=== PATIENT | female | born 1965 | race Caucasian/White ===

== ENCOUNTER 2016-11-18 12:05 | Inpatient (IN) | payer OTHER ==
[~2016-11-18] VITALS: Ht 147.3 cm; Wt 59.9 kg
--- NOTE | ~2016-11-18 | EKG ---
[address] [place] [address] ELECTROCARDIOGRAM REPORT Name: RADHA KRAMER Room #: 427-P ADM IN M.R.#: [id number] Admission: 11/18/16 Attend Phys: Judah Parisi MD Discharge: Date of : 61 Report #: [id number] THIS REPORT FOR: //name// [facility] ED Test Date: 2016-11-18 Test Time: 13:43:57 Pat Name: RADHA KRAMER Department: Room: [facility] Gender: F Senior Relationship Manager: [id number] : 1965 Requested By: Dalia Woodruff Order Number: [id number] MD: Emilio Estevez Measurements Intervals [place] Rate: 91 P: 65 RI: 147 QRS: 50 QRSD: 91 T: 25 QT: 370 QTc: 456 Interpretive Statements Sinus rhythm Low voltage, precordial leads RSR' in V1 or V2, right VCD Nonspecific ST and T wave abnormality Compared to ECG 01/08/2013 18:36:[address] and T wave abnormality is now present Electronically Signed On 11-19-2016 13:48:26 CDT by Emilio Estevez [email or web address] <ELECTRONICALLY SIGNED> By: Emilio Estevez MD, [facility] 11/19/16 1348 1343 1343 Emilio Estevez MD, [facility] /EPI
[~2016-11-18 12:05] MED LIST: ALPRAZOLAM PO; CELEXA 20 MG TA20 M1 PO; CELEXA40 MG PO; ENDOCET 10-3251 EACH PO; GLUCOPHAGE500 MG PO; HYDROCODON-ACE1 EAC7 PO; INDERAL 20 MG T20 M1 PO; LEVAQUIN 750 M750 MG PO; LEVOTHYROXIN0.025 MG PO; LEVOTHYROXINE0.05 MG PO; LISINOPRIL20 MG PO; MECLIZINE HCL12.5 MG PO; MELATONIN3 MG PO; NORVASC10 MG PO; OMEPRAZOLE 20 M20 M1 PO; PHENERGAN 25 MG25 M1 PO; PRAVACHOL40 MG PO; RANITIDINE 150150 M1 PO; REGLAN 10 MG TA10 MG PO; RESTORIL; RESTORIL15 MG PO; SYNTHROID25 MCG; TIZANIDINE; TIZANIDINE HCL4 MG PO; XANAX 0.5 MG0.5 M1 PO; ZANAFLEX2 M1 PO
[2016-11-18 12:25] LABS: URINE BILIRUBIN NEGATIVE (Negative); URINE BLOOD 3+ (Negative); URINE COLOR RED; URINE GLUCOSE-RANDOM* NEGATIVE (Negative); URINE KETONES NEGATIVE (Negative); URINE NITRITE POSITIVE (Negative); URINE PROTEIN (DIPSTICK) 3+ (Negative); URINE SPECIFIC GRAVITY 1.025 (1.003-1.035); URINE UROBILINOGEN 0.2 E.U./dl (0.2-1.0)
[2016-11-18 12:26] LABS: CASTS None Seen /LPF (None Seen); CRYSTALS None Seen /LPF (None Seen); SQUAMOUS 0-3 Few /LPF (0-3); URINE RBC >20 Many /HPF (0-2)
[2016-11-18 12:27] LABS: BACTERIA 1-9 Few /HPF (None Seen); URINE WBC 0-5 Rare /HPF (0-5)
[2016-11-18 12:42] LABS: HEMATOCRIT 35.9 % (37.0-47.0); HEMOGLOBIN 11.2 gm/dL (12.0-15.0); MCH 22.5 pg (26.0-34.0); MCHC 31.2 g/dL (28.0-37.0); MCV 72.2 fL (80.0-100.0); PLATELET COUNT 595 thou/uL (150-400); RBC 4.97 mil/uL (4.20-5.00); RDW 19.3 % (10.5-14.5); WBC 21.3 thou/uL (4.0-11.0)
[2016-11-18 12:43] LABS: MANUAL DIFF YES
[2016-11-18 12:57] LABS: CALCIUM 10.5 mg/dL (8.5-10.1); CREATININE 1.1 mg/dL (0.6-1.0); POTASSIUM 5.9 mmol/L (3.5-5.1)
[2016-11-18 12:59] LABS: ABSOLUTE NEUTROPHILS 18.5 thou/uL (1.4-8.2); TOTAL CELL COUNT 100
[2016-11-18 13:00] LABS: ANISOCYTOSIS 2+; HYPOCHROMASIA 1+; MICROCYTES 1+
[2016-11-18 13:01] LABS: POLYCHROMASIA OCCASIONAL
[2016-11-18 13:08] LABS: ALBUMIN 2.1 g/dL (3.4-5.0); ALKALINE PHOSPHATASE 146 U/L (46-116); SGOT 33 U/L (15-37); SGPT 19 U/L (30-65); TOTAL BILIRUBIN 0.1 mg/dL (<0.1-1.0)
[2016-11-18 13:15] LABS: DIRECT BILIRUBIN < 0.1 mg/dL (<0.1-0.3)
[2016-11-18 14:16] VITALS: BP 121/84
[2016-11-18 14:52] VITALS: BP 130/76
[2016-11-18 14:55] VITALS: BP 139/74
[2016-11-18 19:43] VITALS: BP 156/95
[2016-11-19 03:31] VITALS: BP 123/74
[2016-11-19 05:54] LABS: ALBUMIN 1.7 g/dL (3.4-5.0); CALCIUM 8.6 mg/dL (8.5-10.1); CREATININE 1.5 mg/dL (0.6-1.0); TOTAL BILIRUBIN 0.1 mg/dL (<0.1-1.0); TOTAL PROTEIN 6.2 g/dL (6.4-8.2)
[2016-11-19 05:58] LABS: POTASSIUM 4.3 mmol/L (3.5-5.1)
[2016-11-19 08:20] LABS: HEMATOCRIT 30.7 % (37.0-47.0); HEMOGLOBIN 9.6 gm/dL (12.0-15.0); MCH 22.9 pg (26.0-34.0); MCHC 31.3 g/dL (28.0-37.0); MCV 73.3 fL (80.0-100.0); RBC 4.18 mil/uL (4.20-5.00); RDW 19.6 % (10.5-14.5); WBC 17.7 thou/uL (4.0-11.0)
[2016-11-19 08:29] VITALS: BP 110/77
[2016-11-19 15:44] VITALS: BP 123/75
[2016-11-19 20:00] VITALS: BP 122/75
[2016-11-20 04:30] VITALS: BP 121/67
[2016-11-20 05:10] LABS: HEMATOCRIT 29.2 % (37.0-47.0); HEMOGLOBIN 8.9 gm/dL (12.0-15.0); MCH 22.5 pg (26.0-34.0); MCHC 30.5 g/dL (28.0-37.0); MCV 73.7 fL (80.0-100.0); RBC 3.97 mil/uL (4.20-5.00); WBC 11.6 thou/uL (4.0-11.0)
[2016-11-20 05:19] LABS: CREATININE 1.2 mg/dL (0.6-1.0); POTASSIUM 3.4 mmol/L (3.5-5.1)
[2016-11-20] MEDS ORDERED: NORCO 10-325 T1 EACH PO (05:29)
[2016-11-20 08:16] VITALS: BP 111/62
[2016-11-20] MEDS ORDERED: CIPRO500 M1 PO (09:19)
[2016-11-20 15:47] VITALS: BP 140/71
[2016-11-20 20:21] VITALS: BP 137/82
[2016-11-21 04:08] VITALS: BP 108/52
[2016-11-21 08:05] VITALS: BP 95/56
[2016-11-21 09:50] VITALS: BP 130/71
[2016-11-21] MEDS ORDERED: TRAMADOL 50 MG50 MG PO (10:13)
[2016-11-21 10:34] VITALS: BP 130/71
== END 2016-11-21 11:30 | disposition home or self-care (01) | DRG 690 ==
LOC: ER 12:05 → 4E 13:09 → EROBS 13:09 → 4E 14:52
PROVIDERS: Emergency Medicine; Family Medicine
DX: N39.0 Urinary tract infection, site not specified (principal); E87.1 Hypo-osmolality and hyponatremia; E44.0 Moderate protein-calorie malnutrition; I10 Essential (primary) hypertension; E03.9 Hypothyroidism, unspecified; B96.20 Unspecified Escherichia coli [E. coli] as the cause of diseases classified elsewhere; D72.829 Elevated white blood cell count, unspecified; F41.9 Anxiety disorder, unspecified; E87.5 Hyperkalemia; E11.65 Type 2 diabetes mellitus with hyperglycemia; Z79.4 Long term (current) use of insulin; Z88.6 Allergy status to analgesic agent; Z68.27 Body mass index [BMI] 27.0-27.9, adult
CPT/HCPCS: 10783

== ENCOUNTER 2017-01-01 20:04 | Emergency (ER) | payer OTHER ==
[~2017-01-01] VITALS: Ht 147.3 cm; Wt 64.0 kg
--- NOTE | ~2017-01-01 | EKG ---
[address] [address] ELECTROCARDIOGRAM REPORT Name: RADHA KRAMER [facility]: [id number] Admission: 01/01/17 Attend Phys: Discharge: 01/01/17 Date of : 61 Report #: [id number] THIS REPORT FOR: //name// [facility] ED Test Date: 2017-01-01 Test Time: 20:44:07 Pat Name: RADHA KRAMER Department: Room: Gender: F Director Of Institutional Sales: MZOOK : 1965 Requested By: Dalia Woodruff Order Number: [id number] MD: Olivier Weaver Measurements Intervals [place] Rate: 65 P: 47 PA: 152 QRS: 67 QRSD: 80 T: 55 QT: 400 QTc: 416 Interpretive Statements Sinus rhythm RSR' in V1 or V2, probably normal variant Compared to ECG 11/18/2016 13:43:57 ST (T wave) deviation no longer present Electronically Signed On 01-01-2017 22:56:26 CDT by Olivier Weaver [email or web address] <ELECTRONICALLY SIGNED> By: Olivier Weaver MD 01/01/17 [id number] Olivier Weaver MD /EPI
[~2017-01-01 20:04] MED LIST changes: +CIPRO500 M1 PO; +NORCO 10-325 T1 EACH PO; +TRAMADOL 50 MG50 MG PO
[2017-01-01 20:23] LABS: ABSOLUTE NEUTROPHILS 8.6 thou/uL (1.4-8.2); BASOPHILS 0.5 % (0.0-2.0); EOSINOPHILS 5.2 % (0.0-3.0); HEMATOCRIT 27.9 % (37.0-47.0); HEMOGLOBIN 8.7 gm/dL (12.0-15.0); LYMPHOCYTES 27.3 % (24.0-44.0); MCH 22.3 pg (26.0-34.0); MCHC 31.2 g/dL (28.0-37.0); MCV 71.4 fL (80.0-100.0); MONOCYTES 7.1 % (1.0-8.0); PLATELET COUNT 604 thou/uL (150-400); POLYS 59.9 % (36.0-66.0); RBC 3.91 mil/uL (4.20-5.00); RDW 19.1 % (10.5-14.5); WBC 14.4 thou/uL (4.0-11.0)
[2017-01-01 20:24] LABS: MANUAL DIFF NO
[2017-01-01 20:30] LABS: ANION GAP 7 mmol/L (7-16); BUN 18 mg/dL (7-18); CHLORIDE 100 mmol/L (98-107); CO2 25 mmol/L (21-32); CREATININE 1.1 mg/dL (0.6-1.0); GLUCOSE 90 mg/dL (74-106); POTASSIUM 4.5 mmol/L (3.5-5.1); SODIUM 132 mmol/L (136-145)
[2017-01-01 20:35] LABS: ALBUMIN 1.9 g/dL (3.4-5.0); ALKALINE PHOSPHATASE 96 U/L (46-116); SGOT 20 U/L (15-37); SGPT 15 U/L (30-65); TOTAL BILIRUBIN < 0.1 mg/dL (<0.1-1.0); TOTAL PROTEIN 5.9 g/dL (6.4-8.2)
[2017-01-01 20:37] LABS: URINE BILIRUBIN NEGATIVE (Negative); URINE BLOOD 1+ (Negative); URINE COLOR YELLOW; URINE GLUCOSE-RANDOM* NEGATIVE (Negative); URINE KETONES NEGATIVE (Negative); URINE NITRITE NEGATIVE (Negative); URINE PROTEIN (DIPSTICK) 2+ (Negative); URINE SPECIFIC GRAVITY 1.015 (1.003-1.035); URINE UROBILINOGEN 0.2 E.U./dl (0.2-1.0)
[2017-01-01 20:51] LABS: BACTERIA 1-9 Few /HPF (None Seen); CASTS None Seen /LPF (None Seen); CRYSTALS None Seen /LPF (None Seen); SQUAMOUS 0-3 Few /LPF (0-3); URINE RBC 0-2 Rare /HPF (0-2); URINE WBC 0-5 Rare /HPF (0-5)
[2017-01-01 21:21] LABS: ANISOCYTOSIS 2+
[2017-01-01 21:22] LABS: HYPOCHROMASIA 1+; MICROCYTES 2+; POIKILOCYTOSIS SLIGHT; POLYCHROMASIA SLIGHT
== END 2017-01-01 21:31 | disposition home or self-care (01) ==
LOC: ER 20:04
PROVIDERS: Emergency Medicine
DX: G40.89 Other seizures (principal); E11.9 Type 2 diabetes mellitus without complications; I10 Essential (primary) hypertension; F41.9 Anxiety disorder, unspecified; E03.9 Hypothyroidism, unspecified; F17.210 Nicotine dependence, cigarettes, uncomplicated; Z98.890 Other specified postprocedural states; Z88.5 Allergy status to narcotic agent

== ENCOUNTER 2018-09-16 11:07 | Inpatient (IN) | payer OTHER ==
[~2018-09-16] VITALS: Ht 147.3 cm; Wt 65.8 kg
[2018-09-16] VITALS (12 sets, daily range): BP systolic 118–151; BP diastolic 61–86
[2018-09-16] MEDS ORDERED: PROPRANOLOL 1010 MG PO (11:26)
[2018-09-16] MEDS ORDERED: MAXZIDE-25 MG1 EACH PO (11:27)
[2018-09-16] MEDS ORDERED: PIOGLITAZONE15 MG (11:27)
[2018-09-16] MEDS ORDERED: LASIX 20 MG TAB20 MG PO (11:27)
[2018-09-16] MEDS ORDERED: ABILIFY 5 MG TAB5 MG PO (11:27)
[2018-09-16] MEDS ORDERED: HALCION0.25 MG PO (11:28)
[2018-09-16] MEDS ORDERED: KEPPRA 500 MG500 M1 PO (11:28)
[2018-09-16] MEDS ORDERED: SYNTHROID100 MC1 PO (11:29)
[2018-09-16] MEDS ORDERED: PROTONIX40 M1 PO (11:29)
[2018-09-16] MEDS ORDERED: CRESTOR10 MG PO (11:29)
[2018-09-16] MEDS ORDERED: PHENERGAN 25 MG25 M1 PO (11:30)
[2018-09-16] MEDS ORDERED: NORCO 10-325 T1 EACH PO (11:30)
[2018-09-16] MEDS ORDERED: FLAGYL500 M1 PO (11:32)
[2018-09-16] MEDS ORDERED: CIPRO500 MG PO (11:32)
[2018-09-16 11:50] LABS: HEMOGLOBIN 12.9 gm/dL (12.0-15.0)
[2018-09-16 11:51] LABS: HEMATOCRIT 38.7 % (37.0-47.0); MCH 27.8 pg (26.0-34.0); MCHC 33.3 g/dL (28.0-37.0); MCV 83.4 fL (80.0-100.0); RBC 4.64 mil/uL (4.20-5.00); RDW 13.4 % (10.5-14.5)
[2018-09-16 11:52] LABS: URINE BILIRUBIN NEGATIVE (Negative); URINE BLOOD TRACE (Negative); URINE CLARITY CLEAR; URINE COLOR YELLOW; URINE GLUCOSE-RANDOM* TRACE (Negative); URINE KETONES NEGATIVE (Negative); URINE LEUKOCYTES-REFLEX NEGATIVE (Negative); URINE NITRITE-REFLEX NEGATIVE (Negative); URINE PROTEIN (DIPSTICK) 2+ (Negative); URINE SPECIFIC GRAVITY 1.025 (1.005-1.035); URINE UROBILINOGEN 0.2 E.U./dl (0.2-1.0)
[2018-09-16 12:04] LABS: CALCIUM 9.1 mg/dL (8.5-10.1); CREATININE 1.2 mg/dL (0.6-1.0); POTASSIUM 3.6 mmol/L (3.5-5.1)
[2018-09-16 12:04] LABS: SQUAMOUS 0-3 Few /LPF (0-3)
[2018-09-16 12:05] LABS: BACTERIA-REFLEX None Seen /HPF (None Seen); CASTS None Seen /LPF (None Seen); CRYSTALS None Seen /LPF (None Seen); URINE RBC 0-2 Rare /HPF (0-2); URINE WBC-REFLEX 0-5 Rare /HPF (0-5)
[2018-09-16 12:09] LABS: ALBUMIN 1.9 g/dL (3.4-5.0); TOTAL BILIRUBIN 0.1 mg/dL (<0.1-1.0); TOTAL PROTEIN 6.8 g/dL (6.4-8.2)
[2018-09-16 12:25] LABS: ABSOLUTE NEUTROPHILS 25.9 thou/uL (1.4-8.2); ANISOCYTOSIS 1+; METAMYELOCYTES 6 %; MYELOCYTES 1 %; PLATELET COUNT 761 thou/uL (150-400); PLATELET ESTIMATE INCREASED
[2018-09-17] VITALS (14 sets, daily range): BP systolic 100–146; BP diastolic 43–83
[2018-09-17 06:10] LABS: HEMATOCRIT 34.9 % (37.0-47.0); HEMOGLOBIN 11.8 gm/dL (12.0-15.0); MCHC 33.7 g/dL (28.0-37.0); MCV 82.9 fL (80.0-100.0); PLATELET COUNT 749 thou/uL (150-400); RBC 4.21 mil/uL (4.20-5.00); RDW 13.4 % (10.5-14.5); WBC 22.1 thou/uL (4.0-11.0)
[2018-09-17 06:25] LABS: ALBUMIN 1.7 g/dL (3.4-5.0); CALCIUM 8.4 mg/dL (8.5-10.1); CREATININE 0.8 mg/dL (0.6-1.0); MAGNESIUM 1.3 mg/dL (1.8-2.4); POTASSIUM 3.1 mmol/L (3.5-5.1); TOTAL BILIRUBIN 0.2 mg/dL (<0.1-1.0)
[2018-09-17 07:44] LABS: ABSOLUTE NEUTROPHILS 18.1 thou/uL (1.4-8.2); ANISOCYTOSIS 1+; METAMYELOCYTES 3 %; MYELOCYTES 1 %
[2018-09-18 07:51] VITALS: BP 150/88
[2018-09-18 11:46] LABS: HEMATOCRIT 36.4 % (37.0-47.0); HEMOGLOBIN 11.8 gm/dL (12.0-15.0); MCH 27.2 pg (26.0-34.0); MCHC 32.5 g/dL (28.0-37.0); MCV 83.5 fL (80.0-100.0); RBC 4.35 mil/uL (4.20-5.00); RDW 13.9 % (10.5-14.5); WBC 13.5 thou/uL (4.0-11.0)
[2018-09-18] MEDS ORDERED: CIPRO500 MG PO (14:49)
[2018-09-18] MEDS ORDERED: FLAGYL500 M1 PO (14:50)
[2018-09-18 15:21] VITALS: BP 150/88
== END 2018-09-18 16:21 | disposition home or self-care (01) | DRG 871 ==
LOC: ER 11:07 → EROBS 13:29 → ICU 13:29 → 4W 09-17 13:10
PROVIDERS: Nurse Practitioner; Nurse Practitioner Family; ADMIT Internal Medicine
DX: A41.9 Sepsis, unspecified organism (principal); E43 Unspecified severe protein-calorie malnutrition; E87.1 Hypo-osmolality and hyponatremia; E46 Unspecified protein-calorie malnutrition; N17.9 Acute kidney failure, unspecified; A09 Infectious gastroenteritis and colitis, unspecified; K55.9 Vascular disorder of intestine, unspecified; I10 Essential (primary) hypertension; E11.9 Type 2 diabetes mellitus without complications; E03.9 Hypothyroidism, unspecified; G40.909 Epilepsy, unspecified, not intractable, without status epilepticus; R65.20 Severe sepsis without septic shock; F41.1 Generalized anxiety disorder; K21.9 Gastro-esophageal reflux disease without esophagitis; E87.6 Hypokalemia; F17.210 Nicotine dependence, cigarettes, uncomplicated; Z68.30 Body mass index [BMI] 30.0-30.9, adult; Z98.1 Arthrodesis status; Z90.49 Acquired absence of other specified parts of digestive tract; Z86.73 Personal history of transient ischemic attack (TIA), and cerebral infarction without residual deficits; Z79.84 Long term (current) use of oral hypoglycemic drugs; Z79.899 Other long term (current) drug therapy; Z88.5 Allergy status to narcotic agent
CPT/HCPCS: 10047; 10078